=== PATIENT | female | born 1995 | race Caucasian/White ===

== ENCOUNTER 2022-08-29 22:25 | Outpatient (REF) | payer OTHER, SELFPAY | END 2022-08-29 22:26 | LOC: LAB 22:25 | PROVIDERS: PCP Obstetrics & Gynecology; Visit Provider Obstetrics & Gynecology | DX: Z34.93 Encounter for supervision of normal pregnancy, unspecified, third trimester (principal) | CPT/HCPCS: 87081 ==

== ENCOUNTER 2022-09-10 03:38 | Inpatient (IN) | payer OTHER, SELFPAY ==
[2022-09-10] VITALS (17 sets, daily range): BP systolic 103–130; BP diastolic 55–78; PULSE 76–110; RESP 16–18; TEMP 36.7–36.9
[2022-09-10 04:32] LABS: Hematocrit 34.5 % (36.0-48.0); Hemoglobin 11.7 g/dL (12.0-16.0); Mean Corpuscular HGB Conc 33.9 g/dL (29.9-35.2); Mean Corpuscular Hemoglobin 28.2 pg (26.7-34.0); Mean Corpuscular Volume 83.1 fL (81.0-99.0); Mean Platelet Volume 10.3 fL (9.5-13.5); Platelet Count 232 10^3/uL (150-450); Red Blood Count 4.15 10^6/uL (4.20-5.40); Red Cell Distribution Width 13.4 % (11.0-15.0); White Blood Count 9.9 10^3/uL (4.0-11.0)
--- NOTE | 2022-09-10 07:22 | W.PC.ACHO ---
Registration Status: ADM IN Primary Language: Preferred Language: Occitan Active Medications Generic Name Dose Route Start Last Admin Trade Name Ana Rosa PRN Reason Stop Dose Admin Carboprost Tromethamine 250 mcg 09/10/22 04:09 Carboprost Tromethamine 250 Mcg/Ml 1 Ml Vial IM Q15M PRN Bleeding Sodium Chloride 1,000 mls @ 125 mls/hr 09/10/22 04:15 Sodium Chloride 0.9% 1,000 Ml IV .Q8H NASIM Oxytocin 10 unit/ Sodium 501 mls @ 6.012 mls/hr 09/10/22 04:15 Chloride IV Q24H NASIM 2 MILLIUNIT/MIN Lidocaine 5 ml 09/10/22 04:09 Lidocaine Viscous 2% 15 Ml Topical Solution TOPICAL DIRECTED PRN Pain Lidocaine 1 ml 09/10/22 04:09 Lidocaine Hcl 1% 200 Mg/20 Ml Mdv INJ DIRECTED PRN Pain Methylergonovine Maleate 0.2 mg 09/10/22 04:09 Methylergonovine Maleate 0.2 Mg/Ml Ampule IM ONCE PRN Uterine Contractility/Contract Methylergonovine Maleate 0.2 mg 09/10/22 04:09 Methylergonovine Maleate 0.2 Mg Tablet PO Q4H PRN Uterine Contractility/Contract Misoprostol 600 mcg 09/10/22 04:09 Misoprostol 100 Mcg Tablet PO ONCE PRN Uterine Bleeding Misoprostol 800 mcg 09/10/22 04:09 Misoprostol 100 Mcg Tablet SL ONCE PRN Uterine Bleeding Misoprostol 1,000 mcg 09/10/22 04:09 Misoprostol 100 Mcg Tablet CO ONCE PRN Uterine Bleeding Nalbuphine HCl 10 mg 09/10/22 04:09 Nalbuphine Hcl 10 Mg/Ml Ampule IV Q3H PRN Pain Ondansetron HCl 4 mg 09/10/22 04:09 Ondansetron Pf 4 Mg/2 Ml Vial IV Q6H PRN Nausea And Vomiting Ondansetron HCl 4 mg 09/10/22 04:09 Ondansetron 4 Mg Rapdis Tablet SL Q6H PRN Nausea And Vomiting Oxytocin 10 unit 09/10/22 04:09 Oxytocin 100 Unit/10 Ml Vial IM ONCE PRN Uterine Bleeding Diet Category Date Time Status Clear Liquid Diet Diet 09/10/22 Breakfast Active Consults Category Date Time Status Consult to Anesthesiology Routine Cons 09/10/22 Ordered IV Insertion/Site Date of IV Line Insertion [ 09/10/22 Midline 20g left Hand] IV Insertion Time [Midline 20g 04:10 left Hand] Neurology Patient orientation (short person,place,time,situation list) [place] coma scale total score 15 Respiratory Oxygen Delivery Method Room Air
--- NOTE | 2022-09-10 07:33 | PM.OBPRCVD ---
Procedure Intrapartal events: None Induction method: none Delivery augmentation: rupture of membranes Delivery monitor: external FHT and external uterine Route of delivery: Episiotomy Description: none Laceration description: none Estimated blood loss (mL): 200 Anesthesia type: None Disposition: floor Delivery date: 09/10/22 Gender: male presentation: vertex Placental delivery description: Spontaneous cord description: 3 Vessels heart rate - 1 minute: 100 bpm or Greater respiratory effort - 1 minute: Spontaneous/Strong Cry muscle tone - 1 minute: Active Movement reflex response - 1 minute: Prompt Response color - 1 minute: Bluish Hands or Feet total score - 1 minute: 9 heart rate - 5 minute: 100 bpm or Greater respiratory effort - 5 minute: Spontaneous/Strong Cry muscle tone - 5 minute: Active Movement reflex response - 5 minute: Prompt Response color - 5 minute: [place]/No Cyanosis total score - 5 minute: 10 Stage 1 Duration Labor - Stage 1 Duration: 6 hours and 0 minutes Labor State Duration Labor - Stage 2 Duration: 4 minutes Labor - Stage 3 Duration: 3 minutes Total Length of Labor: 6 hours and 7 minutes
[2022-09-10] MEDS: IBUPROFEN 600 MG TABLET PO ×3 (09:49→22:28)
--- NOTE | 2022-09-10 19:18 | W.PC.ACHO ---
Registration Status: ADM IN Primary Language: Preferred Language: Bengali Reported on nursing, pain control & bonding. Active Medications Generic Name Dose Route Start Last Admin Trade Name Freq PRN Reason Stop Dose Admin Acetaminophen 650 mg 09/10/22 09:34 Acetaminophen 325 Mg Tablet PO Q6H PRN Mild Pain Carboprost Tromethamine 250 mcg 09/10/22 04:09 Carboprost Tromethamine 250 Mcg/Ml 1 Ml Vial IM Q15M PRN Bleeding Sodium Chloride 1,000 mls @ 125 mls/hr 09/10/22 04:15 Sodium Chloride 0.9% 1,000 Ml IV .Q8H NASIM Ibuprofen 600 mg 09/10/22 09:34 09/10/22 16:30 Ibuprofen 600 Mg Tablet PO 600 mg Q6H PRN Administration Moderate Pain Lidocaine 5 ml 09/10/22 04:09 Lidocaine Viscous 2% 15 Ml Topical Solution TOPICAL DIRECTED PRN Pain Lidocaine 1 ml 09/10/22 04:09 Lidocaine Hcl 1% 200 Mg/20 Ml Mdv INJ DIRECTED PRN Pain Methylergonovine Maleate 0.2 mg 09/10/22 04:09 Methylergonovine Maleate 0.2 Mg/Ml Ampule IM ONCE PRN Uterine Contractility/Contract Methylergonovine Maleate 0.2 mg 09/10/22 04:09 Methylergonovine Maleate 0.2 Mg Tablet PO Q4H PRN Uterine Contractility/Contract Misoprostol 600 mcg 09/10/22 04:09 Misoprostol 100 Mcg Tablet PO ONCE PRN Uterine Bleeding Misoprostol 800 mcg 09/10/22 04:09 Misoprostol 100 Mcg Tablet SL ONCE PRN Uterine Bleeding Misoprostol 1,000 mcg 09/10/22 04:09 Misoprostol 100 Mcg Tablet [place] ONCE PRN Uterine Bleeding Nalbuphine HCl 10 mg 09/10/22 04:09 Nalbuphine Hcl 10 Mg/Ml Ampule IV Q3H PRN Pain Ondansetron HCl 4 mg 09/10/22 04:09 Ondansetron Pf 4 Mg/2 Ml Vial IV Q6H PRN Nausea And Vomiting Ondansetron HCl 4 mg 09/10/22 04:09 Ondansetron 4 Mg Rapdis Tablet SL Q6H PRN Nausea And Vomiting Oxytocin 10 unit 09/10/22 04:09 Oxytocin 100 Unit/10 Ml Vial IM ONCE PRN Uterine Bleeding Diet Category Date Time Status Regular Consistency Diet Diet 09/10/22 Breakfast Active Consults Category Date Time Status Consult to Anesthesiology Routine Cons 09/10/22 Ordered IV Insertion/Site Date of IV Line Insertion [ 09/10/22 Midline 20g left Hand] IV Insertion Time [Midline 20g 04:10 left Hand] Neurology Patient orientation (short person,place,time,situation list) Maddison coma scale total score 15 [place] coma scale total score 15 Respiratory Oxygen Delivery Method Room Air Oxygen Delivery Method Room Air
[2022-09-11] MEDS: ACETAMINOPHEN 325 MG TABLET 650 MG PO (00:06)
--- NOTE | 2022-09-11 07:32 | W.PC.ACHO ---
Registration Status: ADM IN Primary Language: Preferred Language: Kyrgyz report given at 0710 Active Medications Generic Name Dose Route Start Last Admin Trade Name Ana Rosa PRN Reason Stop Dose Admin Acetaminophen 650 mg 09/10/22 09:34 09/11/22 00:06 Acetaminophen 325 Mg Tablet PO 650 mg Q6H PRN Administration Mild Pain Carboprost Tromethamine 250 mcg 09/10/22 04:09 Carboprost Tromethamine 250 Mcg/Ml 1 Ml Vial IM Q15M PRN Bleeding Sodium Chloride 1,000 mls @ 125 mls/hr 09/10/22 04:15 Sodium Chloride 0.9% 1,000 Ml IV .Q8H NASIM Ibuprofen 600 mg 09/10/22 09:34 09/10/22 22:28 Ibuprofen 600 Mg Tablet PO 600 mg Q6H PRN Administration Moderate Pain Lidocaine 5 ml 09/10/22 04:09 Lidocaine Viscous 2% 15 Ml Topical Solution TOPICAL DIRECTED PRN Pain Lidocaine 1 ml 09/10/22 04:09 Lidocaine Hcl 1% 200 Mg/20 Ml Mdv INJ DIRECTED PRN Pain Methylergonovine Maleate 0.2 mg 09/10/22 04:09 Methylergonovine Maleate 0.2 Mg/Ml Ampule IM ONCE PRN Uterine Contractility/Contract Methylergonovine Maleate 0.2 mg 09/10/22 04:09 Methylergonovine Maleate 0.2 Mg Tablet PO Q4H PRN Uterine Contractility/Contract Misoprostol 600 mcg 09/10/22 04:09 Misoprostol 100 Mcg Tablet PO ONCE PRN Uterine Bleeding Misoprostol 800 mcg 09/10/22 04:09 Misoprostol 100 Mcg Tablet SL ONCE PRN Uterine Bleeding Misoprostol 1,000 mcg 09/10/22 04:09 Misoprostol 100 Mcg Tablet [place] ONCE PRN Uterine Bleeding Nalbuphine HCl 10 mg 09/10/22 04:09 Nalbuphine Hcl 10 Mg/Ml Ampule IV Q3H PRN Pain Ondansetron HCl 4 mg 09/10/22 04:09 Ondansetron Pf 4 Mg/2 Ml Vial IV Q6H PRN Nausea And Vomiting Ondansetron HCl 4 mg 09/10/22 04:09 Ondansetron 4 Mg Rapdis Tablet SL Q6H PRN Nausea And Vomiting Oxytocin 10 unit 09/10/22 04:09 Oxytocin 100 Unit/10 Ml Vial IM ONCE PRN Uterine Bleeding Diet Category Date Time Status Regular Consistency Diet Diet 09/10/22 Breakfast Active Neurology [place] coma scale total score 15
--- NOTE | 2022-09-11 07:44 | PM.OBPRCVD ---
Procedure events: No Care Intrapartal events: None Laceration description: none Estimated blood loss (mL): 200 Anesthesia type: None Infant Delivery date: 09/10/22 Gender: male presentation: vertex Placental delivery description: Spontaneous cord description: 3 Vessels heart rate - 1 minute: 100 bpm or Greater respiratory effort - 1 minute: Spontaneous/Strong Cry muscle tone - 1 minute: Active Movement reflex response - 1 minute: Prompt Response color - 1 minute: Bluish Hands or Feet total score - 1 minute: 9 heart rate - 5 minute: 100 bpm or Greater respiratory effort - 5 minute: Spontaneous/Strong Cry muscle tone - 5 minute: Active Movement reflex response - 5 minute: Prompt Response color - 5 minute: [place]/No Cyanosis total score - 5 minute: 10 Stage 1 Duration Labor - Stage 1 Duration: 6 hours and 0 minutes Labor State Duration Labor - Stage 2 Duration: 4 minutes Labor - Stage 3 Duration: 3 minutes Total Length of Labor: 6 hours and 7 minutes
--- NOTE | 2022-09-11 07:45 | PM.OBPN ---
OB - PN: Subj Subjective Patient comments: no complaints and pain well controlled Exam Constitutional Vital Signs - 24 hr 09/10/22 09:39 09/10/22 16:33 09/10/22 22:31 Temperature 98.1 F Pulse Rate 90 81 76 Respiratory Rate Blood Pressure 112/65 110/63 110/66 09/10/22 09:30 09/10/22 16:42 09/10/22 22:30 Temperature 98.4 F 98.2 F Pulse Rate Respiratory Rate 16 16 Blood Pressure Common normals: no apparent distress Respiratory Common normals: normal respiratory effort and clear to auscultation bilaterally Cardio Common normals: regular rate and regular rhythm GI Common normals: Normal to inspection, nondistended, normoactive bowel sounds present Extremity Common normals: no clubbing, cyanosis or edema and no calf tenderness OB - PN: A/P Plan - Vaginal Delivery day: 1 Plan: routine care Time Spent with Patient Time: Total time spent is greater than 50% in coordination of care (as documented) at patient's floor/unit and/or counseling patient: Total time spent with greater than 50% in coordination of care (as documented) at patient's floor/unit and/or counseling patient: less than 15 minutes
[2022-09-11 08:15] VITALS: BP 97/57; PULSE 74
[2022-09-11 08:20] VITALS: PULSE 74; RESP 16; TEMP 36.4
--- NOTE | 2022-09-11 09:05 | PC.NURSE ---
baby to breast. discussed rubella non immunity. denies need for pain medication.
[2022-09-11] MEDS: IBUPROFEN 600 MG TABLET PO (09:22)
--- NOTE | 2022-09-11 09:24 | PC.NURSE ---
motrin 600 mg po
--- NOTE | 2022-09-11 09:32 | PC.NURSE ---
pt refused mmr vaccine
--- NOTE | 2022-09-11 10:47 | PC.NURSE ---
baby to breast
--- NOTE | 2022-09-11 15:29 | PC.NURSE ---
Given info on tongue tie and references for pediatric dentist for complete evaluation. States will discuss with Peds and other 2 children were also tongue tied.
== END 2022-09-11 | disposition home or self-care (01) | DRG 807 ==
PROVIDERS: Admitting Provider Obstetrics & Gynecology; PCP Obstetrics & Gynecology; Visit Provider Obstetrics & Gynecology
DX: O80 Encounter for full-term uncomplicated delivery (principal); Z37.0 Single live birth; Z3A.00 Weeks of gestation of pregnancy not specified
CPT/HCPCS: 36415; 59025; 59050; 59410; 80307; 81003; 85027; 86850; 86900; 86901; 96374

== ENCOUNTER 2022-09-13 08:28 | Outpatient (RCR) | payer OTHER, SELFPAY ==
[2022-09-13 13:45] VITALS: BP 113/73; PULSE 96; RESP 16; TEMP 36.6; O2SAT 99
--- NOTE | 2022-09-13 13:49 | PC.NURSE ---
Elliot Broussard and Juan arrive for follow up visit. All doing well. Bobo reports cramping is worse this time around than other 2 babies . Discussed care of self and comfort with cramping. Verbalized understanding. Taking Tylenol as needs and has warm pack for comfort. Bleeding is scant and turning light pink. No clots or heavy flow. No stitches required after delivery. Reports BM this AM and no concerns. is supportive and helpful at home, making sure other children are cared for and Bobo has food and fluids as she needs. Also affords her to nap as she needs.
== END 2022-09-13 13:45 | disposition home or self-care (01) ==
LOC: FBCO 08:28
PROVIDERS: PCP Obstetrics & Gynecology; Visit Provider Obstetrics & Gynecology
DX: Z39.1 Encounter for care and examination of lactating mother (principal)

== ENCOUNTER 2023-07-16 10:07 | Outpatient (OUT) | payer OTHER, SELFPAY ==
[2023-07-16 13:19] LABS: HCG Quantitative <1 mIU/mL
== END 2023-07-16 10:08 | disposition home or self-care (01) ==
LOC: LAB 10:09
PROVIDERS: PCP Obstetrics & Gynecology; Visit Provider Obstetrics & Gynecology
DX: N92.6 Irregular menstruation, unspecified (principal)
CPT/HCPCS: 36415; 84702

== ENCOUNTER 2023-07-21 13:00 | Outpatient (OUT) | payer OTHER, SELFPAY ==
--- NOTE | 2023-07-21 13:03 | US_ITS ---
The [address] [address] Patient Name: SHARAN KIRBY MRN: [id number] date: 1995 Sex: F Assigned Patient Location: Current Patient Location: Accession/Order Number: [id number] Exam Date: 07/21/2023 13:05 Report Date: 07/21/2023 15:24 At the request of: MARIA TERESA BOND Procedure: US pelvis w/ transvaginal EXAMINATION: US pelvis w/ transvaginal HISTORY: Pelvic Pain In Female, IUD Check In Place Z97.5 COMPARISON: No relevant comparison available. FINDINGS: Transabdominal and transvaginal images The uterus is normal in size, contour and myometrial echotexture measuring 7.2 x 3.4 x 4.5 cm, anteverted. No focal myometrial mass. Linear hyperechogenicity is identified within the endometrial cavity extending to the lower uterine segment. The arms of the IUD do not appear to be deployed The endometrium measures 3 mm, normal The right ovary is normal measuring 2.9 x 1.7 x 1.7 cm. Normal color and Doppler flow. The left ovary is normal measuring 2.2 x 1.5 x 2.1 cm. Normal color and Doppler flow No ascites US/US pelvis w/ transvaginal IMPRESSION: Low position of the IUD extending to the lower uterine segment Electronically authenticated by: PEDRO STEPHENS Date: 07/21/2023 15:24
== END 2023-07-21 13:01 | disposition home or self-care (01) ==
LOC: US 13:00
PROVIDERS: PCP Obstetrics & Gynecology; Visit Provider Obstetrics & Gynecology
DX: R10.2 Pelvic and perineal pain (principal); Z97.5 Presence of (intrauterine) contraceptive device
CPT/HCPCS: 76830; 76856

== ENCOUNTER 2024-08-17 12:50 | Outpatient (OUT) | payer OTHER, SELFPAY ==
--- NOTE | 2024-08-17 13:00 | US_ITS ---
[address] [address] Patient Name: SHARAN KIRBY MRN: [id number] date: 1995 Sex: F Assigned Patient Location: US Current Patient Location: Accession/Order Number: [id number] Exam Date: 08/17/2024 16:35 Report Date: 08/17/2024 16:38 At the request of: MARIA TERESA BOND DO Procedure: US OB transvaginal First trimester ultrasound HISTORY: Missed menses. Positive test. Yolk sac, gestational sac, pole and cardiac activity not visualized. Uterus is normal with anteverted position. Right ovary measures 2.6 x 1.8 x 1.6 cm. Left ovary measures 2.2 x 1.9 x 1.9 cm. There is no adnexal mass. No free fluid. The cervical length 1.5 cm. The cervical os is closed. US/US OB transvaginal IMPRESSION: No intrauterine identified. No adnexal mass. No free fluid. May be consideration for very early intrauterine gestation. Ectopic not excluded. Short-term follow-up assessment with pelvic ultrasound and beta hCG levels recommended. Impression dictated by: Salvador Saldana M.D. 08/17/2024 4:38 PM Dictation [facility] Electron[facility] authenticated by: [id number] Y Date: 08/17/2024 16:38
== END 2024-08-17 12:51 | disposition home or self-care (01) ==
LOC: US 12:53
PROVIDERS: PCP Obstetrics & Gynecology; Visit Provider Obstetrics & Gynecology
DX: O20.9 Hemorrhage in early pregnancy, unspecified (principal); N92.6 Irregular menstruation, unspecified
CPT/HCPCS: 76817